=== PATIENT | female | born 1950 | race Caucasian/White ===

== ENCOUNTER 2017-09-12 20:11 | Inpatient (IN) ==
--- NOTE | 2017-09-12 20:25 | Emergency Department Note ---
Disposition Clinical Impression: Pyelonephritis Disposition: Admitted As Inpatient Condition: Fair Time of Disposition: 22:00 General Adult HPI - General Chief complaint: ED Abdominal Pain Stated complaint: Abdominal pain Time Seen by Provider: 09/12/17 20:13 Source: EMS Mode of arrival: EMS Limitations: no limitations Nursing Notes Reviewed: Yes Vital Signs Reviewed: Yes - History of Present Illness HPI Narrative: Patient is a 67-year-old female who presented to [facility] ED on 09/12/17 with a chief complaint of abdominal pain of 2 days' duration. Patient states that her abdominal pain began gradually and has been progressing. She states that on Thursday, she had a LEEP procedure done. She has had several abdominal surgeries in the past including a cholecystectomy. Patient states that her pain is located in both the right lower quadrant and left lower quadrant. Her right lower quadrant pain radiates into her right flank. She describes this pain as an aching pain that is exacerbated by palpation. She reports a subjective feeling of nausea, but denies having any vomiting, fever, chills, chest pain, shortness of breath, dysuria, diarrhea, or constipation. Patient has no further complaints at this time. Pt Subjective Complaint: Abdominal pain Onset (ago): day(s) Location: abdomen Radiation: flank Quality: aching, constant Consistency: constant Improves with: nothing Worsens with: nothing Associated symptoms: Reports: nausea/vomiting. Denies: headaches, loss of appetite, shortness of breath, syncope, weakness Treatments Prior to Arrival: none - Related Data Home Medications Medication Instructions Recorded Confirmed Albuterol Sulfate [Albuterol 2 puff IH Q4HR PRN 12/18/16 09/13/17 Inhaler] Amlodipine Besylate [Amlodipine 10 mg PO DAILY 12/18/16 09/13/17 Besylate] Aspirin [Lo-Dose Aspirin EC] 81 mg PO DAILY 12/18/16 09/13/17 Atorvastatin Calcium [Lipitor] 20 mg PO HS 12/18/16 09/13/17 BuPROPion [Wellbutrin] 100 mg PO DAILY 12/18/16 09/13/17 Budesonide/Formoterol 160/4.5 2 puff IH BIDR 12/18/16 09/13/17 [Symbicort 160/4.5] Carvedilol [Coreg] 25 mg PO BID 12/18/16 09/13/17 Cholecalciferol (D-3) [Vitamin D] 5,000 unit PO DAILY 12/18/16 09/13/17 Ferrous Sulfate [Ferrous Sulfate] 325 mg PO DAILY 12/18/16 09/13/17 Fluticasone Propionate Nasal 2 spr NS DAILY PRN 12/18/16 09/13/17 [Flonase] Furosemide [Lasix] 40 mg PO BID 12/18/16 09/13/17 Hydralazine HCl 50 mg PO QID 12/18/16 09/13/17 Ipratropium/Albuterol Neb [Duoneb] 3 ml IH QID PRN 12/18/16 09/13/17 Levothyroxine Sodium [Synthroid] 300 mcg PO DAILY 12/18/16 09/13/17 Metformin HCl [Glucophage Xr] 750 mg PO BID 12/18/16 09/13/17 Montelukast [Singulair] 10 mg PO HS 12/18/16 09/13/17 Multivitamin [One Daily 1 tab PO DAILY 12/18/16 09/13/17 Multivitamin] [place]-3/Dha/Epa/Fish Oil [Fish Oil 1 tab PO DAILY 12/18/16 09/13/17 1,000 mg Softgel] Omeprazole [PriLOSEC] 40 mg PO DAILY 12/18/16 09/13/17 Sertraline [Zoloft] 200 mg PO DAILY 12/18/16 09/13/17 Spironolactone [Aldactone] 50 mg PO DAILY 12/18/16 09/13/17 cloNIDine HCl [CloNIDine HCl] 0.1 mg PO BID 12/18/16 09/13/17 diazePAM [Valium] 2 mg PO BID PRN 09/08/17 09/13/17 SUMAtriptan succinate [Imitrex] 50 mg PO Q2H PRN 09/13/17 09/13/17 Terbinafine HCl [Terbinafine HCl] 250 mg PO DAILY 09/13/17 09/13/17 Allergies Allergy/AdvReac Type Severity Reaction Status Date / Time codeine AdvReac Palpitation Verified 09/08/17 11:49 s ibuprofen [From Motrin] AdvReac Gastrointestinal Verified 09/08/17 11:49 Upset latex AdvReac See Verified 09/08/17 11:49 Comments lisinopril AdvReac Cough Verified 09/08/17 11:49 losartan AdvReac Itching Verified 09/08/17 11:49 Zolpidem [From Ambien] AdvReac See Verified 09/08/17 11:49 Comments surgical akin AdvReac Mild See Uncoded 09/08/17 11:49 Comments Constitutional: Reports: as per HPI. Denies: fever, chills, weakness, weight change Eyes: Reports: as per HPI ENT ED: Reports: as per HPI. Denies: ear pain, throat pain Cardiovascular: Reports: as per HPI. Denies: chest pain, palpitations, dyspnea on exertion, syncope Respiratory: Reports: as per HPI. Denies: cough, dyspnea Gastrointestinal: Reports: as per HPI, abdominal pain, nausea. Denies: vomiting , diarrhea, constipation, hematemesis Genitourinary: Reports: as per HPI. Denies: urgency, dysuria, frequency Musculoskeletal: Reports: as per HPI. Denies: back pain, arthralgia, myalgia Integumentary: Reports: as per HPI. Denies: rash, lesions Neurological: Reports: as per HPI. Denies: weakness Psychiatric: Reports: as per HPI. 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 - Social History Smoking Status: Never smoker Smokeless Tobacco Status: No Alcohol use: Reports: none Drug use: Reports: none Physical Exam - General Limitations: no limitations General appearance: alert, in no apparent distress - Head Head exam: atraumatic, normocephalic, normal inspection - Eye Eye exam: Present: normal appearance, PERRL, EOMI - ENT ENT exam: normal exam, normal oropharynx, mucous membranes moist - Neck Neck exam: Present: normal inspection, full ROM, trachea midline - Chest Chest inspection: Present: normal inspection, symmetric chest wall rise - Respiratory Respiratory exam: Present: normal lung sounds bilaterally. Absent: accessory muscle use, prolonged expiratory phase - Cardiovascular Cardiovascular exam: Present: regular rate, normal rhythm, normal heart sounds, +S1, +S2. Absent: bradycardia, tachycardia, systolic murmur, diastolic murmur - Abdominal Exam Abdominal exam: Present: soft, tenderness, distention. Absent: guarding, rebound, diminished bowel sounds, [place]'s sign, Rovsing's sign, tenderness at [place]'s Point Abdominal tenderness: Present: RLQ, LLQ - Neurological Exam Neurological exam: Present: alert, oriented X3 - Psychiatric Psychiatric exam: Present: normal affect, normal mood - Skin Skin exam: Present: warm, dry, intact Course Course Narrative: Patient is a 67-year-old female who presented to the ED for the chief complaint of right lower quadrant and left lower quadrant abdominal pain we will obtain a CT scan of the abdomen and pelvis without contrast to rule out intra-abdominal pathology. CBC, BMP, lipase, and liver panel will also be obtained. - Reevaluation(s) Reevaluation #1: Patients urine demonstrates the presence of trace lysed blood, a large amount of leukocyte esterase. Her white count is elevated at 18.[address] scan demonstrated mild right hydronephrosis, mild diffuse bladder wall thickening with findings suspicious for pyelonephritis and cystitis. It also demonstrated findings suspicious for central uterine lesion, which could reflect degenerating fibroid or endometrial lesion. Reevaluation #2: Spoke with hospitalist; patient will be admitted to the hospitalist service. Vital Signs Temperature 100.3 F H 09/12/17 20:28 Pulse Rate 91 09/12/17 20:28 Respiratory Rate 19 09/12/17 20:28 Blood Pressure 157/75 09/12/17 20:28 O2 Sat by Pulse Oximetry 93 09/12/17 20:28 Temperature 98.4 F 09/13/17 16:15 Pulse Rate 76 09/13/17 16:15 Respiratory Rate 16 09/13/17 16:15 Blood Pressure 147/73 09/13/17 16:15 O2 Sat by Pulse Oximetry 96 09/13/17 16:15 Oxygen Delivery Oxygen Delivery Nasal Cannula Medical Decision Making - Medical Records Medical records reviewed: Yes I reviewed the patient's medical records. - Lab Data Lab results reviewed: Yes I reviewed the patient's lab results. Result diagrams: 09/13/17 07:30 09/13/17 04:46 Lab Results 09/12/17 09/12/17 09/12/17 Range/Units 21:00 21:00 21:00 WBC 18.3 H (4.3-11.1) K/mcL RBC 4.12 (3.82-4.97) M/mcL Hgb 12.4 D (11.5-15.4) g/dL Hct 35.7 (35.3-44.9) % MCV 86.7 (83.0-100.0) fL MCH 30.1 (28.0-33.3) pg MCHC 34.7 (31.6-35.5) g/dL RDW 13.9 (11.5-14.5) % Plt Count 316 (140-400) K/mcL MPV 10.0 (9.4-12.4) fL Immature Gran % 0.5 (0-4) % Seg Neutrophils % 71.3 % Lymphocytes % 18.3 % Monocytes % 9.1 % Eosinophils % 0.4 % Basophils % 0.4 % Neutrophils # 13.0 H (1.6-8.9) K/mcL Lymphocytes # 3.4 (0.6-4.6) K/mcL Monocytes # 1.7 H (0.0-1.3) K/mcL Eosinophils # 0.1 (0.0-0.6) K/mcL Basophils # 0.1 (0.0-0.2) K/mcL Sodium 134 L (136-145) mEq/L Potassium 3.4 L (3.5-5.1) mEq/L Chloride 96 L (98-107) mEq/L Carbon Dioxide 28 (23-29) mEq/L BUN 10 (8-23) mg/dL Creatinine 0.60 (0.60-1.20) mg/dL Est GFR ( Amer) > 60 (> 60) Est GFR (Non-Af Amer) > 60 (> 60) BUN/Creatinine Ratio 17 (6-26) Glucose 127 H (70-105) mg/dL Calculated Osmolality 279 L (280-300) Lactic Acid 0.9 (0.5-2.2) mmol/L Calcium 9.1 (8.6-10.3) mg/dL Total Bilirubin 0.5 (0.3-1.0) mg/dL Direct Bilirubin 0.1 (0.0-0.2) mg/dL Indirect Bilirubin 0.4 (0.0-1.2) mg/dL AST 17 (13-39) Units/L ALT 18 (7-52) Units/L Alkaline Phosphatase 76 (34-104) Units/L Serum Total Protein 6.8 (6.4-8.9) g/dL Albumin 4.0 (3.5-5.7) g/dL Globulin 2.8 (2.4-3.5) g/dL Albumin/Globulin Ratio 1.4 (1.1-2.2) Lipase 16 (11-82) Units/L Ur Specimen Adequacy Urine Color (Yellow) Urine Clarity (Clear) Urine pH (5.0-8.0) pH Units Ur Specific [place] (1.010-1.025) Urine Protein (Neg-Trace) mg/dL Urine Glucose (UA) (Normal) mg/dL Urine Ketones (Negative) mg/dL Urine Blood (Negative) Urine Nitrite (Negative) Urine Bilirubin (Negative) Urine Urobilinogen (Normal) mg/dL Ur Leukocyte Esterase (Negative) Urine Microscopic WBC Ur Culture Indicated? (NO) 09/12/17 Range/Units 21:05 WBC (4.3-11.1) K/mcL RBC (3.82-4.97) M/mcL Hgb (11.5-15.4) g/dL Hct (35.3-44.9) % MCV (83.0-100.0) fL MCH (28.0-33.3) pg MCHC (31.6-35.5) g/dL RDW (11.5-14.5) % Plt Count (140-400) K/mcL MPV (9.4-12.4) fL Immature Gran % (0-4) % Seg Neutrophils % % Lymphocytes % % Monocytes % % Eosinophils % % Basophils % % Neutrophils # (1.6-8.9) K/mcL Lymphocytes # (0.6-4.6) K/mcL Monocytes # (0.0-1.3) K/mcL Eosinophils # (0.0-0.6) K/mcL Basophils # (0.0-0.2) K/mcL Sodium (136-145) mEq/L Potassium (3.5-5.1) mEq/L Chloride (98-107) mEq/L Carbon Dioxide (23-29) mEq/L BUN (8-23) mg/dL Creatinine (0.60-1.20) mg/dL Est GFR ( Amer) (> 60) Est GFR (Non-Af Amer) (> 60) BUN/Creatinine Ratio (6-26) Glucose (70-105) mg/dL Calculated Osmolality (280-300) Lactic Acid (0.5-2.2) mmol/L Calcium (8.6-10.3) mg/dL Total Bilirubin (0.3-1.0) mg/dL Direct Bilirubin (0.0-0.2) mg/dL Indirect Bilirubin (0.0-1.2) mg/dL AST (13-39) Units/L ALT (7-52) Units/L Alkaline Phosphatase (34-104) Units/L Serum Total Protein (6.4-8.9) g/dL Albumin (3.5-5.7) g/dL Globulin (2.4-3.5) g/dL Albumin/Globulin Ratio (1.1-2.2) Lipase (11-82) Units/L Ur Specimen Adequacy See below A Urine Color Yellow (Yellow) Urine Clarity Cloudy A (Clear) Urine pH 6.5 (5.0-8.0) pH Units Ur Specific [place] 1.010 (1.010-1.025) Urine Protein 100 H (Neg-Trace) mg/dL Urine Glucose (UA) Normal (Normal) mg/dL Urine Ketones Negative (Negative) mg/dL Urine Blood Trace-lysed H (Negative) Urine Nitrite Negative (Negative) Urine Bilirubin Negative (Negative) Urine Urobilinogen Normal (Normal) mg/dL Ur Leukocyte Esterase Large H (Negative) Urine Microscopic WBC Test Not Performed Ur Culture Indicated? YES A (NO) - Radiology Data Radiology results reviewed: Yes I reviewed the patient's radiology results. Abdomen/Pelvis CT 09/12/17 20:44 IMPRESSION: 1. Mild right hydroureteronephrosis. No obstructing calculus. Mild diffuse bladder wall thickening. Findings are suspicious for pyelonephritis and cystitis. 2. Findings suspicious for central uterine lesion. Finding could reflect degenerating fibroid or endometrial lesion. Consider further assessment with ultrasound or pelvic MRI. D/ / 09/12/2017 21:20:24 Hever Ag MD / [facility] Interpreting Provider: Hever Ag MD
[2017-09-12] MEDS ORDERED: *HR* Nalbuphine 10 MG/ML AMPUL IVP ONE (20:45)
--- NOTE | 2017-09-12 20:46 | Emergency Department Note ---
START Narrative - START START: I examined this patient and my medical decision-making was reviewed with the Resident Physician. I agree with the documented findings, disposition and treatment plan as described except to the extent set forth below. 67-year-old female presents to mention for lower abdominal pain with onset yesterday. No associated vomiting diarrhea or constipation. She said it hurts a little bit to urinate. She denies any blood in her urine. Pain radiates up to the right flank. She has had right flank pain that radiates down her right leg in the past. Similar to that at this time. No documented fevers at home but she does have a temperature here of 100.3. Workup with lab work as well as a CT of her pelvis and urinalysis.
[2017-09-12 21:20] LABS: Basophils # 0.1 K/mcL (0.0-0.2); Basophils % 0.4 %; Eosinophils # 0.1 K/mcL (0.0-0.6); Eosinophils % 0.4 %; Hematocrit 35.7 % (35.3-44.9); Hemoglobin 12.4 g/dL (11.5-15.4); Immature Granulocytes % 0.5 % (0-4); Lymphocytes # 3.4 K/mcL (0.6-4.6); Lymphocytes % 18.3 %; Mean Corpuscular HGB Conc 34.7 g/dL (31.6-35.5); Mean Corpuscular Hemoglobin 30.1 pg (28.0-33.3); Mean Corpuscular Volume 86.7 fL (83.0-100.0); Monocytes # 1.7 K/mcL (0.0-1.3); Monocytes % 9.1 %; Platelet Count 316 K/mcL (140-400); Red Blood Count 4.12 M/mcL (3.82-4.97); Red Cell Distribution Width 13.9 % (11.5-14.5); Segmented Neutrophils % 71.3 %
[2017-09-12 21:20] LABS: Bilirubin,Urine Negative (Negative); Blood,Urine Trace-lysed (Negative); Clarity,Urine Cloudy (Clear); Color,Urine Yellow (Yellow); Glucose,Urine (UA) Normal (Normal); Ketones,Urine Negative (Negative); Leukocyte Esterase,Urine Large (Negative); Nitrite,Urine Negative (Negative); PH,Urine 6.5 pH Units (5.0-8.0); Protein,Urine 100 mg/dL (Neg-Trace); Urobilinogen,Urine Normal (Normal)
[2017-09-12] MEDS ORDERED: cefTRIAXone 1,000 MG in Water for inj. (sterile) 20 ML 10 ML IVP ONE (21:32)
[2017-09-12 21:39] LABS: Alanine Aminotransferase 18 Units/L (7-52); Albumin/Globulin Ratio 1.4 (1.1-2.2); Alkaline Phosphatase 76 Units/L (34-104); Aspartate Amino Transferase 17 Units/L (13-39); BUN/Creatinine Ratio 17 (6-26); Bilirubin,Direct 0.1 mg/dL (0.0-0.2); Bilirubin,Indirect 0.4 mg/dL (0.0-1.2); Bilirubin,Total 0.5 mg/dL (0.3-1.0); Blood Urea Nitrogen 10 mg/dL (8-23); Calcium 9.1 mg/dL (8.6-10.3); Carbon Dioxide 28 mEq/L (23-29); Chloride 96 mEq/L (98-107); Globulin 2.8 g/dL (2.4-3.5); Glucose 127 mg/dL (70-105); Lipase 16 Units/L (11-82); Osmolality,Calculated 279 (280-300); Potassium 3.4 mEq/L (3.5-5.1); Sodium 134 mEq/L (136-145); Total Protein 6.8 g/dL (6.4-8.9); eGFR For African Americans > 60 (> 60); eGFR For Non-African Americans > 60 (> 60)
[2017-09-12] MEDS ORDERED: Acetaminophen 325 MG TABLET PO ONE (21:58)
--- NOTE | 2017-09-12 22:21 | Event Note ---
Date of Encounter: 09/12/17 Time of Encounter: 22:15 Patient was seen and examined. I agree with the Resident's note as written. patient with abdominal pain x 2 days. Pain is in the lower quadrants mainly on the right and into the right flank. Patient reports urinary symptoms including dysuria, burning sensation, minimal urination, and hesitancy. Hemodynamically stable in the ED with temp of 100.3. Work up revealed leukocytosis of 18.3, K 3.4. + UA. CT A/P showed findings of bladder wall thickening and possibly pyelonephritis. Mild right hydroureteronephrosis. There was a suspicious central uterine lesion. Patient recently had a D&C and hysteroscopic resection of subucosal fibroid, LEEP. A/Ox3, NAD RRR. S2, No m/r/g CTAB Soft, suprapubic tenderness, right lower quadrant tenderness, right CVA tenderness No edema. 2+ DP Nonfocal Will admit the patient Replace K IV ceftriaxone f/u on cultures Pain control Pyridium 100 mg TID PRN Bladder scan now and place garcia or straight cath if >[address] a/p are likely post operative from recent instrumentation and known fibroid. F/u with obgyn Resume home meds Sliding scale insulin DVT ppx.
--- NOTE | 2017-09-12 23:17 | Internal Med History&Physical ---
Date of Encounter: 09/13/17 Time of Encounter: 11:00 Internal Medicine - H&P: HPI Chief complaint: abdominal pain Admitted From: Emergency Dept Plans for Post Hospital Care: Home History of present illness: Ms. Moreno is a 67 year old female PMHx diabetes, hypertension, dyslipidemia, hypothyroid presents for abdominal pain of 2 days duration. Patient had leep procedure 5 days ago for post-menopausal bleed and reports resolution of bleeding since then. She has had pyelonephritis in the past and states symptoms are similar. Surgical history includes cholecystectomy and appendectomy. RLQ pain radiates to the back. She has had trouble urinating for the last 5 days, where it only drips. This is a new symptom. +constipation. Has fever of 100- 101F at home and chills. +chronic cough with clear sputum and has been desatting at 87%. Denies vomitting, CP, headaches, muscle weakness, vision changes. Past Med Surg Social Fam HX - Past Medical History Medical history: asthma, coronary artery disease, diabetes, hyperlipidemia, hypertension Psychiatric history: no psych history, depression - Past Surgical History Surgical History: other - Social History Smoking Status: Never smoker Smokeless Tobacco Status: No Alcohol use: none Drug use: none Internal Medicine - H&P: Meds Albuterol Sulfate [Albuterol Inhaler] 2 puff IH Q4HR PRN 12/18/16 [History] Amlodipine Besylate [Amlodipine Besylate] 10 mg PO DAILY 12/18/16 [History] Aspirin [Lo-Dose Aspirin EC] 81 mg PO DAILY 12/18/16 [History] Atorvastatin Calcium [Lipitor] 20 mg PO HS 12/18/16 [History] BuPROPion [Wellbutrin] 100 mg PO DAILY 12/18/16 [History] Budesonide/Formoterol 160/4.5 [Symbicort 160/4.5] 2 puff IH BIDR 12/18/16 [ History] Carvedilol [Coreg] 25 mg PO BID 12/18/16 [History] Cholecalciferol (D-3) [Vitamin D] 5,000 unit PO DAILY 12/18/16 [History] Ferrous Sulfate [Ferrous Sulfate] 325 mg PO DAILY 12/18/16 [History] Fluticasone Propionate Nasal [Flonase] 2 spr NS DAILY PRN 12/18/16 [History] Furosemide [Lasix] 40 mg PO BID 12/18/16 [History] Hydralazine HCl 50 mg PO QID 12/18/16 [History] Ipratropium/Albuterol Neb [Duoneb] 3 ml IH QID PRN 12/18/16 [History] Levothyroxine Sodium [Synthroid] 300 mcg PO DAILY 12/18/16 [History] Metformin HCl [Glucophage Xr] 750 mg PO BID 12/18/16 [History] Montelukast [Singulair] 10 mg PO HS 12/18/16 [History] Multivitamin [One Daily Multivitamin] 1 tab PO DAILY 12/18/16 [History] [place]-3/Dha/Epa/Fish Oil [Fish Oil 1,000 mg Softgel] 1 tab PO DAILY 12/18/16 [ History] Omeprazole [PriLOSEC] 40 mg PO DAILY 12/18/16 [History] Sertraline [Zoloft] 200 mg PO DAILY 12/18/16 [History] Spironolactone [Aldactone] 50 mg PO DAILY 12/18/16 [History] cloNIDine HCl [CloNIDine HCl] 0.1 mg PO TID 12/18/16 [History] diazePAM [Valium] 2 mg PO BID PRN 09/08/17 [History] 3 Allergy/AdvReac Type Severity Reaction Status Date / Time codeine AdvReac Palpitation Verified 09/08/17 11:49 s ibuprofen [From Motrin] AdvReac Gastrointestinal Verified 09/08/17 11:49 Upset latex AdvReac See Verified 09/08/17 11:49 Comments lisinopril AdvReac Cough Verified 09/08/17 11:49 losartan AdvReac Itching Verified 09/08/17 11:49 Zolpidem [From Ambien] AdvReac See Verified 09/08/17 11:49 Comments surgical akin AdvReac Mild See Uncoded 09/08/17 11:49 Comments All Systems PM: A 10-system review of systems was performed and is negative for pertinent findings except as documented above in the HPI. - Constitutional Constitutional: chills, fever(s), no night sweats - EENT Eyes: no change in vision, no discharge, no pain, no photophobia Ears: no ear discharge, no ear pain, no tinnitus Nose, mouth and throat: no dysphagia, no nasal discharge, no neck pain, no sore throat - Cardiovascular Cardiovascular ROS IM: no chest pain, no diaphoresis, no dyspnea, no lightheadedness, no palpitations, no syncope - Respiratory Respiratory: no cough, no dyspnea, no wheezing, no excessive phlegm production - Gastrointestinal Gastrointestinal: nausea, no abdominal pain, no diarrhea, no hematemesis, no hematochezia, no melena, no vomiting - Genitourinary Genitourinary: change in urinary stream, difficulty voiding, dysuria, flank pain , no hematuria - Musculoskeletal Musculoskeletal ROS IM: no numbness, no tingling - Integumentary Integumentary IM: no rash, no unusual bruising - Neurological Neurological ROS: no confusion, no convulsions, no focal weakness, no numbness, no tingling, no tremor(s) - Hematologic/Lymphatic Hematologic/Lymphatic: no easy bruising - Constitutional Vitals: Temp Pulse Resp BP Pulse Ox 100.3 F H 83 18 147/73 95 09/12/17 20:28 09/12/17 21:23 09/12/17 22:55 09/12/17 22:55 09/12/17 21:23 General appearance: Present: A&O X 3, pleasant, no acute distress, answers questions appropriately - Head Head exam: Present: atraumatic, normocephalic - Eye Eye exam: Present: PERRL, conjuntiva pink, sclera anicteric Pupils: Present: PERRL - Neck Neck exam general surgery: Present: supple, trachea midline. Absent: lymphadenopathy - Respiratory Respiratory exam: Present: CTAB. Absent: accessory muscle use, rales, rhonchi, wheezes - Cardiovascular Cardiovascular exam: Present: RRR, +S1, +S2. Absent: diastolic murmur, gallop, rubs, systolic murmur - GI/Abdominal GI/Abdominal exam: Present: distended, hypoactive bowel sounds, soft, tenderness , no peritoneal signs. Absent: guarding Additional comments: CVA tenderness bilaterally, more pronounced on the right. - Extremities Exam Extremities exam: Present: pedal edema, warm, radial pulses palpable and symmetrical. Absent: calf tenderness, cyanotic - Neurological Exam Neurological exam: Present: CN II-XII intact, oriented X3, no focal deficits. Absent: pronater drift, facial droop, speech deficit - Skin Skin exam: Present: dry, intact Internal Med - H&P Results - Labs CBC & Chem 7: 09/12/17 21:00 09/12/17 21:00 Labs: Short CBC 09/12/17 Range/Units 21:00 WBC 18.3 H (4.3-11.1) K/mcL Hgb 12.4 D (11.5-15.4) g/dL Hct 35.7 (35.3-44.9) % Plt Count 316 (140-400) K/mcL Neutrophils # 13.0 H (1.6-8.9) K/mcL BMP 09/12/17 21:00 Sodium 134 L Potassium 3.4 L Chloride 96 L Carbon Dioxide 28 BUN 10 Creatinine 0.60 Glucose 127 H Calcium 9.1 Liver Function 09/12/17 Range/Units 21:00 Total Bilirubin 0.5 (0.3-1.0) mg/dL Direct Bilirubin 0.1 (0.0-0.2) mg/dL AST 17 (13-39) Units/L ALT 18 (7-52) Units/L Alkaline Phosphatase 76 (34-104) Units/L Albumin 4.0 (3.5-5.7) g/dL Urine 09/12/17 Range/Units 21:05 Urine Color Yellow (Yellow) Urine Clarity Cloudy A (Clear) Urine pH 6.5 (5.0-8.0) pH Units Ur Specific [place] 1.010 (1.010-1.025) Urine Protein 100 H (Neg-Trace) mg/dL Urine Glucose (UA) Normal (Normal) mg/dL - Impressions ITS Impressions Abdomen/Pelvis CT 09/12/17 20:44 IMPRESSION: 1. Mild right hydroureteronephrosis. No obstructing calculus. Mild diffuse bladder wall thickening. Findings are suspicious for pyelonephritis and cystitis. 2. Findings suspicious for central uterine lesion. Finding could reflect degenerating fibroid or endometrial lesion. Consider further assessment with ultrasound or pelvic MRI. D/ / 09/12/2017 21:20:24 Hever Ag MD / [facility] Interpreting Provider: Hever Ag MD - Assessment and plan (1) Pyelonephritis Current Visit: Yes Status: Acute Assessment and plan: CT with bladder wall thickening/ pyelonephritis. right hydroureteronephritis. Fever on admission. UA + Blood culture and urine culture pending. Continue with ceftriaxone 1g daily Pyridium for pain management. Bladder scan pending due to urine retention, will garcia/cath if >200ml Keep patient on NPO Monitor with AM labs and vital signs [id number] (2) Urinary retention Current Visit: Yes Status: Acute Assessment and plan: Patient reports difficulty voiding for 5 days. Bladder scan pending. if >200ml retention, will garcia/cath. (3) Hypokalemia Current Visit: Yes Status: Acute Assessment and plan: Replace with 20mEq KCl Patient on spinorolactone at home. Monitor with AM labs. (4) Right lower quadrant pain Current Visit: Yes Status: Acute Assessment and plan: Likely secondary to pyelonephritis, pyridium ordered. Treat per above. (5) Hypothyroid Current Visit: Yes Status: Acute Assessment and plan: Continue home meds. Qualifiers: Qualified Code(s): E03.9 - Hypothyroidism, unspecified (6) Hypertension Current Visit: Yes Status: Acute Assessment and plan: Continue home meds. Qualifiers: Qualified Code(s): I10 - Essential (primary) hypertension (7) Diabetes Current Visit: Yes Status: Acute Assessment and plan: Low dose SSI Qualifiers: Diabetes mellitus type: type 2 Diabetes mellitus intermediate project manager insulin use: without residential use Qualified Code(s): E11.9 - Type 2 diabetes mellitus without complications (8) Dyslipidemia Current Visit: Yes Status: Acute Assessment and plan: Continue home lipitor (9) PILLO (obstructive sleep apnea) Current Visit: Yes Status: Acute Assessment and plan: Patient requires CPAP at night to sleep. CPAP as needed. (10) DVT prophylaxis Current Visit: Yes Status: Acute Assessment and plan: SubQ heparin - Time Spent With Patient Total time spent is greater than 50% in coordination of care (as documented) at patient's floor/unit and/or counseling patient: Greater than 35 minutes
[2017-09-12] MEDS ORDERED: Naloxone 0.4 MG/ML INJ IVP PRN (23:20)
[2017-09-12] MEDS ORDERED: Potassium Chloride Elixir 20 MEQ/15 ML UDC PO ONE (23:31)
[2017-09-12] MEDS ORDERED: diazePAM 2 MG TABLET PO PRN (23:38)
[2017-09-13] MEDS ORDERED: *HR* Dextrose 50 % in Water (Syg) 50 ML SYRINGE IVP PRN (00:12)
[2017-09-13] MEDS ORDERED: D5% in Water 1,000 ML IVC PRN (00:12)
[2017-09-13] MEDS ORDERED: Dextrose Gel 15 GM/37.5 ML TUBE PO PRN ×2 (00:12)
[2017-09-13 05:46] LABS: BUN/Creatinine Ratio 20 (6-26); Blood Urea Nitrogen 9 mg/dL (8-23); Calcium 9.2 mg/dL (8.6-10.3); Carbon Dioxide 30 mEq/L (23-29); Chloride 97 mEq/L (98-107); Glucose 129 mg/dL (70-105); Osmolality,Calculated 282 (280-300); Sodium 136 mEq/L (136-145); eGFR For African Americans > 60 (> 60); eGFR For Non-African Americans > 60 (> 60)
[2017-09-13] MEDS: *HR* Heparin 5,000 UNIT/ML VIAL SQ SCH ×2 (05:55→16:49)
[2017-09-13] MEDS: Insulin LISPRO 300 UNITS/3 ML VIAL SQ SCH ×3 (07:38→16:49)
[2017-09-13] MEDS: cefTRIAXone 1,000 MG in Water for inj. (sterile) 20 ML 10 ML IVP SCH (07:56)
[2017-09-13] MEDS: Furosemide 40 MG TABLET PO SCH ×2 (07:57→16:49)
[2017-09-13] MEDS: Aspirin Enteric Coated 81 MG Tablet PO SCH (07:57)
[2017-09-13] MEDS: cloNIDine HCl 0.1 MG TABLET PO SCH ×3 (07:57→21:08)
[2017-09-13] MEDS: amLODIPine 5 MG TABLET PO SCH (07:57)
[2017-09-13] MEDS ORDERED: Ketorolac 30 MG/ML VIAL IVP PRN (08:10)
[2017-09-13] MEDS ORDERED: Acetaminophen 325 MG TABLET PO PRN (08:10)
[2017-09-13 08:26] LABS: Basophils # 0.1 K/mcL (0.0-0.2); Basophils % 0.4 %; Eosinophils # 0.1 K/mcL (0.0-0.6); Eosinophils % 0.6 %; Hematocrit 35.7 % (35.3-44.9); Hemoglobin 11.9 g/dL (11.5-15.4); Immature Granulocytes % 0.4 % (0-4); Lymphocytes # 2.2 K/mcL (0.6-4.6); Lymphocytes % 13.3 %; Mean Corpuscular HGB Conc 33.3 g/dL (31.6-35.5); Mean Corpuscular Volume 87.1 fL (83.0-100.0); Mean Platelet Volume 10.2 fL (9.4-12.4); Monocytes # 1.5 K/mcL (0.0-1.3); Monocytes % 9.5 %; Neutrophils # 12.2 K/mcL (1.6-8.9); Platelet Count 288 K/mcL (140-400); Red Cell Distribution Width 13.8 % (11.5-14.5); Segmented Neutrophils % 75.8 %
[2017-09-13] MEDS: *HR* HYDROcodone/Acet 5/325 mg TABLET PO PRN ×2 (09:44→19:56)
[2017-09-13] MEDS: Budesonide/Formoterol 160/4.5 MDI IH SCH ×2 (10:27→19:57)
[2017-09-13] MEDS: Ringers Solution, Lactated 1,000 ML IVC SCH ×2 (10:57→23:34)
--- NOTE | 2017-09-13 15:15 | Internal Med Progress Note ---
Date of Encounter: 09/13/17 Time of Encounter: 08:35 - Assessment and plan (1) Pyelonephritis Current Visit: Yes Status: Acute Assessment and plan: Acute pyelonephritis and cystitis with mild right hydroureteronephrosis. Continue IV antibiotics. Follow culture results. IV hydration. Moderate risk for complications. Symptomatic treatment for pain. (2) Hypokalemia Current Visit: Yes Status: Acute Assessment and plan: Potassium levels remained low at 3. We will replete. (3) Right lower quadrant pain Current Visit: Yes Status: Acute (4) Hypothyroid Current Visit: Yes Status: Chronic Assessment and plan: Continue levothyroxin Qualifiers: Qualified Code(s): E03.9 - Hypothyroidism, unspecified (5) Hypertension Current Visit: Yes Status: Chronic Assessment and plan: Blood pressure is elevated this morning. Will resume home medications. Continue carvedilol, Lasix and spironolactone Qualifiers: Hypertension type: essential hypertension Qualified Code(s): I10 - Essential (primary) hypertension (6) Diabetes Current Visit: Yes Status: Chronic Assessment and plan: Fairly controlled. Continue current insulin regimen Qualifiers: Diabetes mellitus type: type 2 Diabetes mellitus marine oil terminal superintendent insulin use: without marine oil terminal superintendent use Qualified Code(s): E11.9 - Type 2 diabetes mellitus without complications (7) Dyslipidemia Current Visit: Yes Status: Chronic Assessment and plan: continue Lipitor (8) PILLO (obstructive sleep apnea) Current Visit: Yes Status: Chronic Assessment and plan: Use CPAP as needed (9) Urinary retention Current Visit: Yes Status: Acute Assessment and plan: Improved. Continue IV hydration. (10) DVT prophylaxis Current Visit: Yes Status: Acute Assessment and plan: On subcutaneous heparin - Time Spent With Patient Total time spent is greater than 50% in coordination of care (as documented) at patient's floor/unit and/or counseling patient: - Subjective Interval history: Patient is awake and alert. She does continue to have some abdominal pain. Did have fever earlier this morning with MAXIMUM TEMPERATURE of 101.2. Also reports dysuria. She is making more urine. No hematuria reported. - Constitutional Vitals: Temp Pulse Resp BP Pulse Ox 98.5 F 72 16 104/65 95 09/13/17 10:00 09/13/17 10:00 09/13/17 10:09/13/17 10:09/13/17 06:52 General appearance: Present: A&O X 3, pleasant, no acute distress, answers questions appropriately - Eye Eye exam: Present: PERRL, conjuntiva pink, sclera anicteric Pupils: Present: PERRL - Neck Neck exam general surgery: Present: supple, trachea midline. Absent: lymphadenopathy - Respiratory Respiratory exam: Present: CTAB. Absent: accessory muscle use, rales, rhonchi, wheezes - Cardiovascular Cardiovascular exam: Present: RRR, +S1, +S2. Absent: diastolic murmur, gallop, rubs, systolic murmur - GI/Abdominal GI/Abdominal exam: Present: normal bowel sounds, soft, no peritoneal signs. Absent: distended, tenderness - Extremities Exam Extremities exam: Present: warm, radial pulses palpable and symmetrical. Absent : calf tenderness, cyanotic, pedal edema - Back Exam Back exam: Present: CVA tenderness (R) - Neurological Exam Neurological exam: Present: CN II-XII intact, oriented X3, no focal deficits. Absent: facial droop, speech deficit - Skin Skin exam: Present: dry, intact Internal Medicine: Result - Labs CBC & Chem 7: 09/13/17 07:30 09/13/17 04:46 Labs: Short CBC 09/13/17 Range/Units 07:30 WBC 16.1 H (4.3-11.1) K/mcL Hgb 11.9 (11.5-15.4) g/dL Hct 35.7 (35.3-44.9) % Plt Count 288 (140-400) K/mcL Neutrophils # 12.2 H (1.6-8.9) K/mcL BMP 09/13/17 04:46 Sodium 136 Potassium 3.0 L Chloride 97 L Carbon Dioxide 30 H BUN 9 Creatinine 0.44 L Glucose 129 H Calcium 9.2 Consult Discharge Plan - Plan Referrals: Trevon Venegas Jr, MD [Primary Care Provider] -
[2017-09-13] MEDS ORDERED: Insulin LISPRO 300 UNITS/3 ML VIAL SQ SCH (21:00)
[2017-09-14 05:41] LABS: Basophils % 0.4 %; Eosinophils # 0.2 K/mcL (0.0-0.6); Eosinophils % 1.9 %; Hematocrit 32.6 % (35.3-44.9); Hemoglobin 10.6 g/dL (11.5-15.4); Immature Granulocytes % 0.5 % (0-4); Lymphocytes # 1.9 K/mcL (0.6-4.6); Lymphocytes % 17.1 %; Mean Corpuscular HGB Conc 32.5 g/dL (31.6-35.5); Mean Corpuscular Hemoglobin 28.6 pg (28.0-33.3); Mean Corpuscular Volume 88.1 fL (83.0-100.0); Mean Platelet Volume 10.5 fL (9.4-12.4); Monocytes # 1.1 K/mcL (0.0-1.3); Monocytes % 9.5 %; Neutrophils # 7.8 K/mcL (1.6-8.9); Platelet Count 251 K/mcL (140-400); Red Cell Distribution Width 13.6 % (11.5-14.5); Segmented Neutrophils % 70.6 %
[2017-09-14] MEDS: *HR* Heparin 5,000 UNIT/ML VIAL SQ SCH (05:44)
[2017-09-14 06:03] LABS: BUN/Creatinine Ratio 15 (6-26); Blood Urea Nitrogen 6 mg/dL (8-23); Calcium 8.8 mg/dL (8.6-10.3); Carbon Dioxide 29 mEq/L (23-29); Chloride 103 mEq/L (98-107); Glucose 125 mg/dL (70-105); Osmolality,Calculated 273 (280-300); Potassium 3.3 mEq/L (3.5-5.1); Sodium 132 mEq/L (136-145); eGFR For African Americans > 60 (> 60); eGFR For Non-African Americans > 60 (> 60)
[2017-09-14] MEDS: Insulin LISPRO 300 UNITS/3 ML VIAL SQ SCH ×2 (09:07→11:54)
[2017-09-14] MEDS: cefTRIAXone 1,000 MG in Water for inj. (sterile) 20 ML 10 ML IVP SCH (09:26)
[2017-09-14] MEDS: amLODIPine 5 MG TABLET PO SCH (09:26)
[2017-09-14] MEDS: Furosemide 40 MG TABLET PO SCH (09:27)
[2017-09-14] MEDS: cloNIDine HCl 0.1 MG TABLET PO SCH (09:27)
[2017-09-14] MEDS: Aspirin Enteric Coated 81 MG Tablet PO SCH (09:27)
[2017-09-14] MEDS: Budesonide/Formoterol 160/4.5 MDI IH SCH (10:52)
[2017-09-14 11:40] VITALS: BP 111/71
--- NOTE | 2017-09-14 12:13 | Discharge Summary ---
- NOTES TO OUTPATIENT PROVIDER Notes to Outpatient Provider: Patient admitted with acute pyelonephritis and urinary retention. Treated with IV antibiotics and IV fluids. Blood cultures are negative. Urine culture growing mixed moustapha. Patient is clinically doing better at this time. Urinating normally currently. She will be discharged home today on oral antibiotics. Date of Encounter: 09/14/17 Time of Encounter: 10:00 - Discharge Diagnosis (1) Pyelonephritis Priority: Primary Status: Acute (2) Hypokalemia Priority: Secondary Status: Acute (3) Right lower quadrant pain Priority: Secondary Status: Acute (4) Hypothyroid Priority: Secondary Status: Chronic Qualifiers: Qualified Code(s): E03.9 - Hypothyroidism, unspecified (5) Hypertension Priority: Secondary Status: Chronic Qualifiers: Hypertension type: essential hypertension Qualified Code(s): I10 - Essential (primary) hypertension (6) Diabetes Priority: Secondary Status: Chronic Qualifiers: Diabetes mellitus type: type 2 Diabetes mellitus long-term insulin use: without moth exterminator use Qualified Code(s): E11.9 - Type 2 diabetes mellitus without complications (7) Dyslipidemia Priority: Secondary Status: Chronic (8) PILLO (obstructive sleep apnea) Priority: Secondary Status: Chronic (9) Urinary retention Priority: Secondary Status: Resolved (10) DVT prophylaxis Priority: Secondary Status: Acute Hospital course: Ms. Moreno is a 67 year old female patient with history of diabetes, hypertension, hyperlipidemia and hypothyroidism who was hospitalized here with right lower quadrant pain radiating to the back and difficulty urinating. She was diagnosed with acute pyelonephritis and cystitis and was also found to have mild right hydroureteronephrosis without any obstructing calculus. She was started on IV fluids and IV antibiotics. Her symptoms have improved greatly with this management. She is doing very well today. She is no longer having urinary retention. Her urine and blood cultures have been negative. She will be discharged home today on oral antibiotics. She will follow up with her primary care provider for further management. Discharge discussed with: patient, nurse - Time Spent with Patient Total time spent providing and/or coordinating discharge services: Greater than 30 minutes (32 min) - Discharge Medications Prescriptions: Ciprofloxacin [Cipro] 500 mg PO BID #24 tablet Lactobacillus Acidophilus [Acidophilus] 1 each PO BID #30 capsule Home Medications: Albuterol Sulfate [Albuterol Inhaler] 2 puff IH Q4HR PRN 12/18/16 [History] Amlodipine Besylate 10 mg PO DAILY 12/18/16 [History] Aspirin [Lo-Dose Aspirin EC] 81 mg PO DAILY 12/18/16 [History] Atorvastatin Calcium [Lipitor] 20 mg PO HS 12/18/16 [History] BuPROPion [Wellbutrin] 100 mg PO DAILY 12/18/16 [History] Budesonide/Formoterol 160/4.5 [Symbicort 160/4.5] 2 puff IH BIDR 12/18/16 [ History] Carvedilol [Coreg] 25 mg PO BID 12/18/16 [History] Cholecalciferol (D-3) [Vitamin D] 5,000 unit PO DAILY 12/18/16 [History] Ferrous Sulfate 325 mg PO DAILY 12/18/16 [History] Fluticasone Propionate Nasal [Flonase] 2 spr NS DAILY PRN 12/18/16 [History] Furosemide [Lasix] 40 mg PO BID 12/18/16 [History] Hydralazine HCl 50 mg PO QID 12/18/16 [History] Ipratropium/Albuterol Neb [Duoneb] 3 ml IH QID PRN 12/18/16 [History] Levothyroxine Sodium [Synthroid] 300 mcg PO DAILY 12/18/16 [History] Metformin HCl [Glucophage Xr] 750 mg PO BID 12/18/16 [History] Montelukast [Singulair] 10 mg PO HS 12/18/16 [History] Multivitamin [One Daily Multivitamin] 1 tab PO DAILY 12/18/16 [History] [place]-3/Dha/Epa/Fish Oil [Fish Oil 1,000 mg Softgel] 1 tab PO DAILY 12/18/16 [ History] Omeprazole [PriLOSEC] 40 mg PO DAILY 12/18/16 [History] Sertraline [Zoloft] 200 mg PO DAILY 12/18/16 [History] Spironolactone [Aldactone] 50 mg PO DAILY 12/18/16 [History] cloNIDine HCl [CloNIDine HCl] 0.1 mg PO BID 12/18/16 [History] diazePAM [Valium] 2 mg PO BID PRN 09/08/17 [History] SUMAtriptan succinate [Imitrex] 50 mg PO Q2H PRN 09/13/17 [History] Terbinafine HCl 250 mg PO DAILY 09/13/17 [History] Ciprofloxacin [Cipro] 500 mg PO BID #24 tablet 09/14/17 [Rx] Lactobacillus Acidophilus [Acidophilus] 1 each PO BID #30 capsule 09/14/17 [Rx] Allergies/Adverse Reactions: 3 Allergy/AdvReac Type Severity Reaction Status Date / Time codeine AdvReac Palpitation Verified 09/08/17 11:49 s ibuprofen [From Motrin] AdvReac Gastrointestinal Verified 09/08/17 11:49 Upset latex AdvReac See Verified 09/08/17 11:49 Comments lisinopril AdvReac Cough Verified 09/08/17 11:49 losartan AdvReac Itching Verified 09/08/17 11:49 Zolpidem [From Ambien] AdvReac See Verified 09/08/17 11:49 Comments surgical akin AdvReac Mild See Uncoded 09/08/17 11:49 Comments Date of admission: 09/12/17 22:18 Primary care physician: Trevon Venegas Jr, MD Consults: 09/12/17 23:19 Consult to Pastoral Services [CONS] Routine Comment: Discharging clinician: Milady Marie Anticipated date of discharge: 09/14/17 - Constitutional Vitals: Temp Pulse Resp BP Pulse Ox 97.9 F 66 16 111/71 94 09/14/17 11:28 09/14/17 11:28 09/14/17 11:28 09/14/17 11:28 09/14/17 11:28 General appearance: Present: A&O X 3, pleasant, no acute distress, answers questions appropriately - Neck Neck exam general surgery: Present: supple, trachea midline. Absent: lymphadenopathy - Respiratory Respiratory exam: Present: CTAB. Absent: accessory muscle use, rales, rhonchi, wheezes - Cardiovascular Cardiovascular exam: Present: RRR, +S1, +S2. Absent: diastolic murmur, gallop, rubs, systolic murmur - GI/Abdominal GI/Abdominal exam: Present: normal bowel sounds, soft, no peritoneal signs. Absent: distended, tenderness - Extremities Exam Extremities exam: Present: warm, radial pulses palpable and symmetrical. Absent : calf tenderness, cyanotic, pedal edema - Neurological Exam Neurological exam: Present: alert, CN II-XII intact, oriented X3, no focal deficits. Absent: facial droop, speech deficit - Patient Status Disposition: Home, Self-Care Condition: Good Functional capacity at discharge: independent ambulation Overall status at discharge: patient is progressing back to baseline - Discharge Instructions Instructions: Urinary Tract Infection in Women (DC) Follow Up With: Trevon Venegas Jr, MD [Primary Care Provider] - (In 1 week) - Diet and Activity Activity: increase activity as tolerated Diet: diabetic diet, low fat, low cholesterol, low salt diet
== END 2017-09-14 13:33 | disposition home or self-care (01) | DRG 690 ==
LOC: EMEROO 20:11 → 3ANU 22:18
PROVIDERS: ADMIT Family Medicine; ATTEND Family Medicine

== ENCOUNTER 2020-01-04 18:26 | Inpatient (IN) ==
[2020-01-04] MEDS ORDERED: 0.9 % Sodium Chloride 1,000 ML IVC ONE ×2 (18:35→21:35)
[2020-01-04] MEDS ORDERED: Isovue-370 500 ML BOTTLE IVP ONE (18:50)
[2020-01-04] MEDS ORDERED: Morphine Sulfate 2 MG/ML SYRINGE IVP ONE ×2 (19:03→21:57)
[2020-01-04 19:54] LABS: Basophils % 0.3 %; Hematocrit 32.9 % (35.3-44.9); Hemoglobin 11.6 g/dL (11.5-15.4); Immature Granulocytes % 0.8 % (0-4); Lymphocytes # 0.5 K/mcL (0.6-4.6); Mean Corpuscular HGB Conc 35.3 g/dL (31.6-35.5); Mean Platelet Volume 9.6 fL (9.4-12.4); Monocytes % 0.7 %; Neutrophils # 5.3 K/mcL (1.6-8.9); Platelet Count 217 K/mcL (140-400); Red Blood Count 3.74 M/mcL (3.82-4.97); Red Cell Distribution Width 13.6 % (11.5-14.5); Segmented Neutrophils % 89.2 %; White Blood Count 5.9 K/mcL (4.3-11.1)
[2020-01-04 19:59] LABS: INR 1.1; Prothrombin Time 12.4 Seconds (9.4-12.1)
[2020-01-04 20:01] LABS: Activated Partial Thrombo Time 25.6 Seconds (26.0-36.0)
[2020-01-04 20:13] LABS: BUN/Creatinine Ratio 32 (6-26); Blood Urea Nitrogen 21 mg/dL (8-23); Calcium 9.3 mg/dL (8.6-10.3); Carbon Dioxide 28 mEq/L (23-29); Chloride 82 mEq/L (98-107); Glucose 132 mg/dL (70-105); Magnesium 0.7 mg/dL (1.6-2.6); Osmolality,Calculated 263 (280-300); Sodium 124 mEq/L (136-145); Troponin I < 0.03 ng/mL (< 0.04); eGFR For African Americans > 60 (> 60); eGFR For Non-African Americans > 60 (> 60)
[2020-01-04] MEDS ORDERED: Potassium Chloride Elixir 20 MEQ/15 ML UDC PO ONE (20:18)
[2020-01-04 20:36] LABS: Bacteria,Urine Few per hpf (None-Few); Bilirubin,Urine Negative (Negative); Blood,Urine Negative (Negative); Calcium Oxalate Crystals,Urine Present; Clarity,Urine Turbid (Clear); Color,Urine Yellow (Yellow); Glucose,Urine (UA) Normal (Normal); Hyaline Casts,Urine Few per lpf (None Seen); Ketones,Urine Negative (Negative); Leukocyte Esterase,Urine Moderate (Negative); Mucus,Urine Few per lpf (None-Few); Nitrite,Urine Negative (Negative); PH,Urine 5.5 pH Units (5.0-8.0); Protein,Urine 30 mg/dL (Neg-Trace); Specific Gravity,Urine 1.026 (1.010-1.025); Squamous Epithelial Cell,Urine Few per hpf (None-Few); Urobilinogen,Urine Normal (Normal); WBC,Urine 15-30 per hpf (0-3)
[2020-01-04] MEDS ORDERED: Acetaminophen 325 MG TABLET PO PRN (23:57)
[2020-01-04] MEDS ORDERED: Naloxone 0.4 MG/ML INJ IVP PRN (23:57)
[2020-01-05] MEDS: cefTRIAXone 1,000 MG in 0.9 % Sodium Chloride Mini Bag 100 ML IVPB SCH (00:37)
[2020-01-05] MEDS: 0.9 % Sodium Chloride 1,000 ML IVC SCH ×2 (00:38→09:51)
[2020-01-05 00:45] LABS: BUN/Creatinine Ratio 31 (6-26); Blood Urea Nitrogen 14 mg/dL (8-23); Calcium 8.3 mg/dL (8.6-10.3); Carbon Dioxide 25 mEq/L (23-29); Chloride 92 mEq/L (98-107); Glucose 122 mg/dL (70-105); Osmolality,Calculated 268 (280-300); Potassium 3.3 mEq/L (3.5-5.1); Sodium 128 mEq/L (136-145); eGFR For African Americans > 60 (> 60); eGFR For Non-African Americans > 60 (> 60)
[2020-01-05 02:54] LABS: Basophils % 0.3 %; Eosinophils % 0.6 %; Hematocrit 27.8 % (35.3-44.9); Immature Granulocytes % 0.6 % (0-4); Lymphocytes # 0.8 K/mcL (0.6-4.6); Lymphocytes % 22.7 %; Mean Corpuscular HGB Conc 34.9 g/dL (31.6-35.5); Mean Corpuscular Hemoglobin 31.6 pg (28.0-33.3); Mean Corpuscular Volume 90.6 fL (83.0-100.0); Mean Platelet Volume 9.6 fL (9.4-12.4); Monocytes % 0.8 %; Neutrophils # 2.7 K/mcL (1.6-8.9); Platelet Count 154 K/mcL (140-400); Red Blood Count 3.07 M/mcL (3.82-4.97); Red Cell Distribution Width 13.8 % (11.5-14.5); White Blood Count 3.6 K/mcL (4.3-11.1)
[2020-01-05 02:55] LABS: Hemoglobin 9.7 g/dL (11.5-15.4); INR 1.1; Prothrombin Time 12.1 Seconds (9.4-12.1)
[2020-01-05 03:11] LABS: Alanine Aminotransferase 48 Units/L (7-52); Albumin 3.7 g/dL (3.5-5.7); Albumin/Globulin Ratio 1.5 (1.1-2.2); Alkaline Phosphatase 63 Units/L (34-104); Aspartate Amino Transferase 66 Units/L (13-39); BUN/Creatinine Ratio 33 (6-26); Bilirubin,Total 0.5 mg/dL (0.3-1.0); Blood Urea Nitrogen 13 mg/dL (8-23); Calcium 8.3 mg/dL (8.6-10.3); Carbon Dioxide 26 mEq/L (23-29); Chloride 93 mEq/L (98-107); Globulin 2.5 g/dL (2.4-3.5); Glucose 118 mg/dL (70-105); Magnesium 1.6 mg/dL (1.6-2.6); Osmolality,Calculated 269 (280-300); Phosphorous 3.2 mg/dL (2.7-4.5); Potassium 3.1 mEq/L (3.5-5.1); Sodium 129 mEq/L (136-145); Total Protein 6.2 g/dL (6.4-8.9); eGFR For African Americans > 60 (> 60); eGFR For Non-African Americans > 60 (> 60)
[2020-01-05] MEDS ORDERED: SUMAtriptan succinate 50 MG TABLET PO PRN (08:37)
[2020-01-05] MEDS ORDERED: Fluticasone Propionate Nasal 50 MCG/SPRAY BOTTLE NS PRN (08:37)
[2020-01-05] MEDS ORDERED: diazePAM 2 MG TABLET PO PRN (08:37)
[2020-01-05] MEDS ORDERED: TERBINAFINE 250 MG PO SCH (09:00)
[2020-01-05] MEDS ORDERED: FISH OIL 1000 MG PO SCH (09:00)
[2020-01-05 09:40] LABS: BUN/Creatinine Ratio 28 (6-26); Blood Urea Nitrogen 10 mg/dL (8-23); Calcium 8.5 mg/dL (8.6-10.3); Carbon Dioxide 27 mEq/L (23-29); Chloride 93 mEq/L (98-107); Glucose 120 mg/dL (70-105); Osmolality,Calculated 268 (280-300); Potassium 3.2 mEq/L (3.5-5.1); Sodium 129 mEq/L (136-145); eGFR For African Americans > 60 (> 60); eGFR For Non-African Americans > 60 (> 60)
[2020-01-05] MEDS: Morphine Sulfate 2 MG/ML SYRINGE IVP PRN ×3 (09:49→20:12)
[2020-01-05] MEDS: Lactobacillus 1 EACH CAP.SPRINK PO SCH ×2 (09:50→20:16)
[2020-01-05] MEDS: Aspirin Enteric Coated 81 MG Tablet PO SCH (09:50)
[2020-01-05] MEDS: Cholecalciferol (D-3) 1,000 UNIT (25MCG) TABLET PO SCH (09:50)
[2020-01-05] MEDS: hydrALAZINE 25 MG TABLET PO SCH ×4 (09:51→22:06)
[2020-01-05] MEDS: Multivit/Ca/Min/Fe/FA 1 TAB TABLET PO SCH (09:51)
[2020-01-05] MEDS: cloNIDine HCL 0.1 MG TABLET PO SCH ×2 (09:51→22:06)
[2020-01-05] MEDS: amLODIPine 5 MG TABLET PO SCH (09:51)
[2020-01-05] MEDS: carvediloL 25 MG TABLET PO SCH ×2 (09:53→17:36)
[2020-01-05] MEDS: Ipratropium/Albuterol Neb 3 ML IH SCH ×3 (10:53→21:35)
[2020-01-05] MEDS: Budesonide/Formoterol 160/4.5 1 PUFF INH IH SCH ×2 (10:54→21:34)
[2020-01-05] MEDS: Cyanocobalamin (B-12) 1,000 MCG TABLET PO SCH (12:04)
[2020-01-05 17:20] LABS: BUN/Creatinine Ratio 18 (6-26); Blood Urea Nitrogen 11 mg/dL (8-23); Calcium 8.4 mg/dL (8.6-10.3); Carbon Dioxide 29 mEq/L (23-29); Chloride 97 mEq/L (98-107); Glucose 107 mg/dL (70-105); Osmolality,Calculated 270 (280-300); Potassium 4.1 mEq/L (3.5-5.1); Sodium 130 mEq/L (136-145); eGFR For African Americans > 60 (> 60); eGFR For Non-African Americans > 60 (> 60)
[2020-01-05] MEDS: *HR* Heparin 5,000 UNIT/ML VIAL SQ SCH (17:37)
[2020-01-06] MEDS: cefTRIAXone 1,000 MG in 0.9 % Sodium Chloride Mini Bag 100 ML IVPB SCH (00:48)
[2020-01-06 00:51] LABS: Basophils % 0.3 %; Hematocrit 27.5 % (35.3-44.9); Hemoglobin 9.4 g/dL (11.5-15.4); Lymphocytes # 1.2 K/mcL (0.6-4.6); Lymphocytes % 36.9 %; Mean Corpuscular HGB Conc 34.2 g/dL (31.6-35.5); Mean Corpuscular Hemoglobin 31.2 pg (28.0-33.3); Mean Corpuscular Volume 91.4 fL (83.0-100.0); Mean Platelet Volume 9.5 fL (9.4-12.4); Monocytes # 0.1 K/mcL (0.0-1.3); Monocytes % 4.5 %; Neutrophils # 1.8 K/mcL (1.6-8.9); Platelet Count 164 K/mcL (140-400); Red Blood Count 3.01 M/mcL (3.82-4.97); Segmented Neutrophils % 56.3 %; White Blood Count 3.1 K/mcL (4.3-11.1)
[2020-01-06 01:08] LABS: BUN/Creatinine Ratio 26 (6-26); Blood Urea Nitrogen 10 mg/dL (8-23); Calcium 8.7 mg/dL (8.6-10.3); Carbon Dioxide 26 mEq/L (23-29); Chloride 96 mEq/L (98-107); Glucose 103 mg/dL (70-105); Magnesium 1.4 mg/dL (1.6-2.6); Osmolality,Calculated 271 (280-300); Potassium 3.6 mEq/L (3.5-5.1); Sodium 131 mEq/L (136-145); eGFR For African Americans > 60 (> 60); eGFR For Non-African Americans > 60 (> 60)
[2020-01-06] MEDS: Ipratropium/Albuterol Neb 3 ML IH SCH ×4 (04:12→22:27)
[2020-01-06] MEDS: Morphine Sulfate 2 MG/ML SYRINGE IVP PRN (04:23)
[2020-01-06] MEDS: *HR* Heparin 5,000 UNIT/ML VIAL SQ SCH ×2 (05:31→16:59)
[2020-01-06] MEDS: carvediloL 25 MG TABLET PO SCH ×2 (08:04→17:02)
[2020-01-06] MEDS: cloNIDine HCL 0.1 MG TABLET PO SCH (08:04)
[2020-01-06] MEDS: Multivit/Ca/Min/Fe/FA 1 TAB TABLET PO SCH (08:05)
[2020-01-06] MEDS: Lactobacillus 1 EACH CAP.SPRINK PO SCH ×2 (08:05→21:54)
[2020-01-06] MEDS: Aspirin Enteric Coated 81 MG Tablet PO SCH (08:05)
[2020-01-06] MEDS: amLODIPine 5 MG TABLET PO SCH (08:05)
[2020-01-06] MEDS: Cholecalciferol (D-3) 1,000 UNIT (25MCG) TABLET PO SCH (08:05)
[2020-01-06] MEDS: hydrALAZINE 25 MG TABLET PO SCH ×4 (08:05→21:54)
[2020-01-06] MEDS: Cyanocobalamin (B-12) 1,000 MCG TABLET PO SCH (08:06)
[2020-01-06] MEDS ORDERED: NON-FORMULARY MEDICATION 1 EACH EACH (Ezetimibe [Zetia] 10 MG) PO SCH (09:00)
[2020-01-06] MEDS ORDERED: Loratadine 10 MG TABLET PO SCH (09:00)
[2020-01-06] MEDS ORDERED: Ondansetron 4 MG/2 ML VIAL IVP PRN (09:21)
[2020-01-06] MEDS: Budesonide/Formoterol 160/4.5 1 PUFF INH IH SCH ×2 (10:32→22:25)
[2020-01-06] MEDS ORDERED: Magnesium Sulfate 1 GM/102 ML PIGGYBACK IVPB ONE (10:41)
[2020-01-06 11:23] LABS: Basophils % 0.6 %; Eosinophils % 1.3 %; Hematocrit 29.4 % (35.3-44.9); Hemoglobin 9.8 g/dL (11.5-15.4); Immature Granulocytes % 0.3 % (0-4); Lymphocytes # 1.2 K/mcL (0.6-4.6); Lymphocytes % 38.8 %; Mean Corpuscular HGB Conc 33.3 g/dL (31.6-35.5); Mean Corpuscular Hemoglobin 30.8 pg (28.0-33.3); Mean Corpuscular Volume 92.5 fL (83.0-100.0); Mean Platelet Volume 9.8 fL (9.4-12.4); Monocytes # 0.1 K/mcL (0.0-1.3); Monocytes % 4.5 %; Neutrophils # 1.7 K/mcL (1.6-8.9); Platelet Count 162 K/mcL (140-400); Red Blood Count 3.18 M/mcL (3.82-4.97); Segmented Neutrophils % 54.5 %; White Blood Count 3.1 K/mcL (4.3-11.1)
[2020-01-06 11:35] LABS: Prothrombin Time 11.1 Seconds (9.4-12.1)
[2020-01-06 11:36] LABS: BUN/Creatinine Ratio 25 (6-26); Blood Urea Nitrogen 9 mg/dL (8-23); Calcium 9.2 mg/dL (8.6-10.3); Carbon Dioxide 27 mEq/L (23-29); Chloride 96 mEq/L (98-107); Glucose 127 mg/dL (70-105); Osmolality,Calculated 270 (280-300); Potassium 4.2 mEq/L (3.5-5.1); Sodium 130 mEq/L (136-145); eGFR For African Americans > 60 (> 60); eGFR For Non-African Americans > 60 (> 60)
[2020-01-06 11:39] LABS: Activated Partial Thrombo Time 25.1 Seconds (26.0-36.0)
[2020-01-06 12:32] LABS: Adenovirus Not Detected (Not Detect); Bordetella Pertussis Not Detected (Not Detect); Chlamydophila pneumoniae Not Detected (Not Detect); Coronavirus 229E Not Detected (Not Detect); Coronavirus HKU1 Not Detected (Not Detect); Coronavirus NL63 Not Detected (Not Detect); Coronavirus OC43 Not Detected (Not Detect); Human Metapneumovirus Not Detected (Not Detect); Human Rhinovirus/Enterovirus Not Detected (Not Detect); Influenza A Subtype 2009 H1 Not Detected (Not Detect); Influenza B Not Detected (Not Detect); Mycoplasma pneumoniae Not Detected (Not Detect); Parainfluenza Virus 1 Not Detected (Not Detect); Parainfluenza Virus 2 Not Detected (Not Detect); Parainfluenza Virus 3 Not Detected (Not Detect); Parainfluenza Virus 4 Not Detected (Not Detect); Respiratory Syncytial Virus Not Detected (Not Detect); SARS-CoV-2 Not Detected (Not Detect)
[2020-01-06] MEDS: *HR* OxyCODONE Immed Rel 5 MG TABLET PO PRN ×2 (13:24→18:28)
[2020-01-06] MEDS ORDERED: cloNIDine HCL 0.1 MG TABLET PO PRN (14:58)
[2020-01-06] MEDS ORDERED: *HR* Midazolam HCl 2 MG/2 ML VIAL ONE (22:41)
[2020-01-06] MEDS ORDERED: *HR* FentaNYL (PF) 100 MCG/2 ML VIAL ONE (22:41)
[2020-01-06] MEDS ORDERED: Isovue-300 50ML VIAL ONE ×2 (23:14→23:15)
[2020-01-07] MEDS ORDERED: Neostigmine Methylsulfate 3 MG/3 ML SYRINGE ONE (00:29)
[2020-01-07] MEDS ORDERED: Ondansetron 4 MG/2 ML VIAL ONE ×2 (00:31)
[2020-01-07] MEDS ORDERED: *HR* Rocuronium Bromide 50 MG/5 ML VIAL ONE (00:31)
[2020-01-07] MEDS ORDERED: *HR* FentaNYL (PF) 100 MCG/2 ML VIAL ONE (00:32)
[2020-01-07] MEDS ORDERED: *HR* HYDROmorphone PF 0.5 MG/0.5 ML SYRINGE IVP PRN (01:31)
[2020-01-07] MEDS ORDERED: *HR* Metoprolol 5 MG/5 ML VIAL IVP PRN (01:32)
[2020-01-07] MEDS ORDERED: Ondansetron 4 MG/2 ML VIAL IVP ONE (01:32)
[2020-01-07] MEDS ORDERED: Albuterol 2.5 MG/3 ML NEBULIZER IH PRN (01:32)
[2020-01-07] MEDS: *HR* FentaNYL (PF) 100 MCG/2 ML VIAL IVP PRN ×2 (01:37→01:47)
[2020-01-07] MEDS ORDERED: Ondansetron ODT 4 MG TAB.RAPDIS PO PRN (02:13)
[2020-01-07] MEDS ORDERED: Ringers Solution, Lactated 1,000 ML IVC SCH (02:13)
[2020-01-07] MEDS ORDERED: Ondansetron 4 MG/2 ML VIAL IVP PRN (02:13)
[2020-01-07] MEDS: cefTRIAXone 1,000 MG in 0.9 % Sodium Chloride Mini Bag 100 ML IVPB SCH (02:45)
[2020-01-07] MEDS ORDERED: Insulin LISPRO 300 UNITS/3 ML VIAL SQ SCH ×2 (08:00→21:00)
[2020-01-07] MEDS ORDERED: dexAMETHasone 4 MG TABLET PO PRN (09:00)
[2020-01-07] MEDS ORDERED: *HR* Metformin 500 MG TABLET PO SCH (09:00)
[2020-01-07] MEDS: Furosemide 40 MG TABLET PO SCH ×2 (09:24→20:23)
[2020-01-07] MEDS: amLODIPine 5 MG TABLET PO SCH (09:24)
[2020-01-07] MEDS: CeFAZolin 2 GM/120 ML BAG IVPB SCH ×2 (09:24→17:09)
[2020-01-07 10:03] LABS: Basophils % 0.3 %; Hematocrit 31.3 % (35.3-44.9); Hemoglobin 10.9 g/dL (11.5-15.4); Immature Granulocytes % 0.3 % (0-4); Lymphocytes # 0.8 K/mcL (0.6-4.6); Lymphocytes % 21.3 %; Mean Corpuscular HGB Conc 34.8 g/dL (31.6-35.5); Mean Corpuscular Hemoglobin 31.8 pg (28.0-33.3); Mean Corpuscular Volume 91.3 fL (83.0-100.0); Monocytes # 0.1 K/mcL (0.0-1.3); Monocytes % 3.5 %; Neutrophils # 2.8 K/mcL (1.6-8.9); Platelet Count 204 K/mcL (140-400); Red Blood Count 3.43 M/mcL (3.82-4.97); Red Cell Distribution Width 13.7 % (11.5-14.5); Segmented Neutrophils % 74.6 %; White Blood Count 3.8 K/mcL (4.3-11.1)
[2020-01-07 10:10] LABS: BUN/Creatinine Ratio 17 (6-26); Blood Urea Nitrogen 7 mg/dL (8-23); Calcium 9.5 mg/dL (8.6-10.3); Carbon Dioxide 25 mEq/L (23-29); Chloride 96 mEq/L (98-107); Glucose 184 mg/dL (70-105); Magnesium 1.2 mg/dL (1.6-2.6); Osmolality,Calculated 277 (280-300); Sodium 132 mEq/L (136-145); eGFR For African Americans > 60 (> 60); eGFR For Non-African Americans > 60 (> 60)
[2020-01-07] MEDS ORDERED: Dextrose Gel 15 GM/37.5 ML TUBE PO PRN ×2 (11:09)
[2020-01-07] MEDS ORDERED: *HR* Dextrose 50 % in Water (Vial) 50 ML VIAL IVP PRN (11:09)
[2020-01-07] MEDS ORDERED: D5% in Water 1,000 ML IVC PRN (11:09)
[2020-01-07] MEDS ORDERED: Fluticasone Propionate Nasal 50 MCG/SPRAY BOTTLE NS PRN (12:04)
[2020-01-07] MEDS ORDERED: SUMAtriptan succinate 50 MG TABLET PO PRN (12:13)
[2020-01-07] MEDS: Insulin LISPRO 300 UNITS/3 ML VIAL SQ SCH ×2 (12:39→17:09)
[2020-01-07] MEDS: hydrALAZINE 25 MG TABLET PO SCH ×3 (12:44→23:39)
[2020-01-07] MEDS: carvediloL 25 MG TABLET PO SCH (17:08)
[2020-01-07] MEDS: Budesonide/Formoterol 160/4.5 1 PUFF INH IH SCH (19:53)
[2020-01-07] MEDS: *HR* OxyCODONE Immed Rel 5 MG TABLET PO PRN (20:40)
[2020-01-08] MEDS: hydrALAZINE 25 MG TABLET PO SCH ×2 (05:58→11:20)
[2020-01-08] MEDS: Budesonide/Formoterol 160/4.5 1 PUFF INH IH SCH (07:39)
[2020-01-08] MEDS: Insulin LISPRO 300 UNITS/3 ML VIAL SQ SCH ×2 (07:48→12:30)
[2020-01-08] MEDS ORDERED: Loratadine 10 MG TABLET PO SCH (09:00)
[2020-01-08] MEDS ORDERED: Aspirin Enteric Coated 81 MG Tablet PO SCH (09:00)
[2020-01-08] MEDS: amLODIPine 5 MG TABLET PO SCH (09:48)
[2020-01-08] MEDS: Furosemide 40 MG TABLET PO SCH (09:48)
[2020-01-08] MEDS: carvediloL 25 MG TABLET PO SCH (09:49)
[2020-01-08 10:45] VITALS: BP 143/81
[2020-01-08] MEDS: *HR* OxyCODONE Immed Rel 5 MG TABLET PO PRN (11:21)
== END 2020-01-08 14:20 | disposition home or self-care (01) | DRG 477 ==
LOC: 3BNU 18:26 → EMEROOARM 18:26 → SUATTDRO 22:29 → 3BNU 23:20 → SUATTDRO 01-05 14:46 → 3NENU 01-05 16:23
PROVIDERS: ADMIT Internal Medicine; ATTEND Internal Medicine